=== PATIENT | female | born 1975 | race Hispanic/Latino ===

== ENCOUNTER → 2018-02-20 12:19 | Outpatient (CLI) | payer OTHER, MEDICAID, SELFPAY ==
--- NOTE | 2018-02-20 12:20 | DI.US.S_ITS ---
PROCEDURE: US PELVIC COMPLETE INDICATIONS: Pelvic pain/ Hx ovarian cysts TECHNIQUE: Real-time scanning was performed of the pelvic organs, with image documentation. Additional endovaginal scanning was necessary due to incomplete visualization of the adnexal and endometrial structures by transabdominal scanning. COMPARISON: [facility], US, PELVIC COMPLETE, 05/11/2017, 16:07. [facility], US, PELVIC COMPLETE, 03/30/2017, 17:00. FINDINGS: Transabdominal scanning: Limited scanning through the kidneys shows no hydronephrosis. No pathologic free abdominal or pelvic fluid. Endovaginal scanning: Uterus: Uterus is normal in size at 3.9 x 5.3 x 7.6 cm. The endometrium measures 9.0 mm in combined thickness. Ovaries: Right ovary measures 2.6 x 1.9 x 1.9 cm and contains a 1.7 x 1.1 x 1.5 cm simple cyst. The left ovary measures 1.8 x 1.1 x 2.2 cm. IMPRESSION: Simple cyst right ovary measures up to 1.7 cm. Source of pain is not seen. Dictated by: Jacob Campa M.D. on 02/20/2018 at 15:00 Approved by: Jacob Campa M.D. on 02/20/2018 at 15:01
== END ==
PROVIDERS: PCP Family Medicine; Visit Provider Obstetrics & Gynecology
DX: R10.2 Pelvic and perineal pain (principal); N83.291 Other ovarian cyst, right side
CPT/HCPCS: 76830; 76856

== ENCOUNTER → 2018-05-10 14:59 | Outpatient (CLI) | payer OTHER, MEDICAID, SELFPAY ==
--- NOTE | 2018-05-10 15:00 | DI.RAD.S_ITS ---
PROCEDURE: XR LUMBAR SPINE 2-3V INDICATIONS: right lumbar radiculopathy TECHNIQUE: 2 views of the lumbar spine were acquired. COMPARISON: [facility], CR, XR LUMBAR SPI COMP W FL EX 7VW, 04/12/2015, 12:59. FINDINGS: Bones: 5 [id number] vertebrae are present. There is normal bony alignment. No vertebral body compression fractures. No suspicious bony lesions. Mild early disc degeneration with small endplate osteophytes. Soft tissues: Overlying bowel gas pattern is normal. No suspicious soft tissue calcifications. IMPRESSION: Early disc degeneration, most notably L5-S1. Dictated by: Nacho Santamaria RRA Interpreted: Meliton Mayers MD on 05/10/2018 at 15:44 Approved by: Meliton Mayers M.D. on 05/11/2018 at 9:45
== END ==
PROVIDERS: PCP Family Medicine; Visit Provider Family Medicine
DX: M51.17 Intervertebral disc disorders with radiculopathy, lumbosacral region (principal)
CPT/HCPCS: 72100

== ENCOUNTER → 2018-08-30 15:22 | Outpatient (CLI) | payer OTHER, MEDICAID, SELFPAY ==
[2018-08-30 15:46] LABS: Appearance Urine UA CLEAR; Bilirubin Urine UA NEGATIVE (NEGATIVE); Color Urine UA YELLOW; Glucose Urine UA NEGATIVE (Negative); Ketones Urine UA NEGATIVE (NEGATIVE); Leukocyte Esterase Urine UA NEGATIVE (NEGATIVE); Nitrite Urine UA NEGATIVE (Negative); Occult Blood Urine UA NEGATIVE (Negative); Protein Urine UA NEGATIVE (Negative); Urobilinogen Urine UA 0.2 E.U./dL (0.2); pH Urine UA 5.5 (4.5-8.0)
[2018-08-30 15:49] LABS: Pregnancy Test Urine Negative (Negative)
== END ==
PROVIDERS: PCP Family Medicine; Visit Provider Registered Nurse
DX: R31.9 Hematuria, unspecified (principal); Z32.00 Encounter for pregnancy test, result unknown
CPT/HCPCS: 81003; 81025

== ENCOUNTER 2018-10-27 21:26 | Emergency (ER) | payer OTHER, MEDICAID, SELFPAY ==
[2018-10-27 21:39] VITALS: BP 128/96; PULSE 75; RESP 20; TEMP 37.3; O2SAT 100; BMI 20.7
--- NOTE | 2018-10-27 21:39 | ED.BACK ---
HPI - Back Pain/Injury General Chief Complaint: Back Pain/Injury Stated Complaint: back pain Time Seen by Provider: 10/27/18 21:37 Source: patient Mode of arrival: ambulatory Limitations: no limitations History of Present Illness HPI Narrative: Patient is a 43-year-old female here for evaluation of lower back pain. Patient states that it started approximately week ago. She does not remember a specific incident that caused the symptoms to come on how ever has worsened since then. She is not having any urinary symptoms. She states she occasionally has had some tingling in her lower extremities. since the onset of the symptoms she has taken Motrin 2 separate times. She states that she does not like to take this medication because it irritates her stomach. She has had lower back pain in the past but she states this pain is more sharp than normal. no fevers. No recent instrumentation. No trauma. Related Data Previous Rx's Medication Instructions Recorded gentamicin 0.1 % topical ointment See Rx Instructions TOP .COMPLEX 11/16/17 #15 gram triamcinolone acetonide 0.1 % See Rx Instructions TOP .COMPLEX 05/13/18 topical ointment #15 gram levonorgestrel 1.5 mg tablet 1.5 mg PO ONCE #1 tab 09/16/18 levonorgestrel-ethinyl estradiol 1 tab PO DAILY #28 tab 09/16/18 0.1 mg-20 mcg tablet hydrocodone-acetaminophen [[place]] 1 tab PO Q4-6H PRN #10 tab 10/27/18 meloxicam [Mobic] 7.5 mg PO BID PRN #60 tab 10/27/18 prednisone 40 mg PO DAILY 2 Days #4 tab 10/27/18 Allergies Allergy/AdvReac Type Severity Reaction Status Date / Time acetaminophen [ACETAMINOPHEN] Allergy Intermediate DIZZY/LIGHT Verified 10/27/18 21:39 HEADED diphenhydramine Allergy Unknown MAKES HER Verified 10/27/18 21:39 [From BENADRYL] EYES DRY Review of Systems Constitutional Denies fever(s) and Denies headache(s) ENT Ears, Nose, Mouth, and Throat: Denies headache(s) and Denies disequilibrium Cardiovascular Denies chest pain and Denies dyspnea Respiratory Denies dyspnea Gastrointestinal Gastrointestinal: Denies abdominal pain, Reports nausea and Denies vomiting Genitourinary Denies dysuria, Denies urinary incontinence, Denies urinary hesitancy and Denies urinary urgency Musculoskeletal Reports back pain, Denies myalgias, Denies arthralgias and Reports tingling Integumentary/Breasts Denies rash Neurologic Denies headache(s), Reports tingling, Reports paresthesias and Denies disequilibrium Hematologic/Lymphatic Denies easy bleeding and Denies easy bruising [facility] Medical History Generalized anxiety disorder (Chronic 04/25/16) History of iron deficiency anemia (Chronic 03/27/16) Severe episode of recurrent major depressive disorder, without psychotic features (Chronic 04/25/16) Chronic constipation (Chronic 07/06/17) Irritable bowel syndrome with constipation (Chronic 09/18/17) Social History marital status: occupational status: unemployed Smoking Status: Never smoker alcohol intake: current substance use type: does not use Exam Initial Vital Signs Initial Vital Signs: Vital Signs Temperature 99.2 F 10/27/18 21:39 Pulse Rate 75 10/27/18 21:39 Respiratory Rate 20 10/27/18 21:39 Blood Pressure 128/96 H 10/27/18 21:39 Pulse Oximetry 100 10/27/18 21:39 Const General: cooperative, well developed, well groomed and No acute distress Orientation: alert, awake and oriented x3 HENMT Head: normal to inspection and normocephalic Resp Effort & Inspection: normal respiratory effort Cardio Rate: regular rate GI Inspection: non-distended Palpation: soft Back/Spine/Pelvis Back: No CVA tenderness Thoracic/Lumbar Spine: No thoraco-lumbar spasm, No thoracic spinal tenderness and No lumbar spinal tenderness Skin Lesions: no lesions Rashes: no rashes Neuro General: alert, awake and oriented x3 Cognition: normal cognition Speech: speech normal Extrem General: normal to inspection and capillary refill normal Psych Appearance: grossly normal and well kempt Course Orders Ordered: Discontinued Medications Hydrocodone Bitart/Acetaminophen (Vicodin Prepack) 1 bottle MISC SEEINSTR ONE Stop: 10/27/18 21:56 Last Admin: 10/27/18 22:04 Dose: 1 bottle Hydromorphone HCl (Dilaudid) 0.5 mg IM NOW ONE Stop: 10/27/18 21:55 Last Admin: 04/28/19 22:04 Dose: 0.5 mg Prednisone (Deltasone) 40 mg PO NOW ONE Stop: 10/27/18 21:55 Last Admin: 10/27/18 22:04 Dose: 40 mg Vital Signs - 8 hr 10/27/18 21:39 10/27/18 22:40 Temperature 99.2 F Pulse Rate 75 50 L Respiratory Rate 20 16 Blood Pressure 128/96 H 126/86 Pulse Oximetry 100 98 MDM - Back Pain/Injury MDM Narrative Medical decision making narrative: Patient without red flag symptoms concerning for cauda equina, fracture, metastasis or epidural hematoma or abscess. She does not have any tenderness to palpation. She states that the pain is ?deeper ?. She was given a shot of pain medication here in the emergency department. No indication for x-rays. Will send home with symptom control. She was given return precautions and follow-up instructions. She expressed understanding and agreement plan. Discharge Plan Departure Patient Disposition: Home Clinical Impression: Lower back pain Qualifiers: Chronicity: acute Back pain laterality: bilateral Sciatica presence: without sciatica Qualified Code(s): M54.5 - Low back pain Discharge Date/Time: 10/27/18 22:40 Interventions: ED Discharge Assessment Last Done: 10/27/18 22:40 Instructions: Back Pain (Alternative Therapy), Low Back Pain, Activity May Be Better then Rest for Low Back Pain Recovery Activity Restrictions/Additional Instructions: I recommend that you stay as active as possible. Take the medications as directed. Start taking the Mobic on Sunday when you have finished the prescription of prednisone. Contact your primary care doctor for a follow-up. Return to the emergency department for any new or worsening symptoms Prescriptions: New hydrocodone-acetaminophen [[place]] 5-325 mg tablet 1 tab PO Q4-6H PRN (Reason: pain) Qty: 10 RF: 0 prednisone 20 mg tablet 40 mg PO DAILY 2 Days Qty: 4 RF: 0 meloxicam [Mobic] 7.5 mg tablet 7.5 mg PO BID PRN (Reason: back pain) Qty: 60 RF: 0 No Action triamcinolone acetonide 0.1 % ointment See Rx Instructions TOP .COMPLEX Qty: 15 RF: 1 levonorgestrel [Plan B One-Step] 1.5 mg tablet 1.5 mg PO ONCE Qty: 1 RF: 0 levonorgestrel-ethinyl estrad [[place]iane] 0.1-20 mg-mcg tablet 1 tab PO DAILY Qty: 28 RF: 3 gentamicin 0.1 % ointment See Rx Instructions TOP .COMPLEX Qty: 15 RF: 0 Referrals: Samantha Garcia DO [Primary Care Provider] -
[2018-10-27] MEDS: HYDROMORPHONE 1 MG INJ 0.5 MG IM (22:04)
[2018-10-27] MEDS: predniSONE 20 MG TABLET 40 MG PO (22:04)
[2018-10-27] MEDS: HYDROCODONE/ACET 5/325 PREPACK 1 BOTTLE MISC (22:04)
[2018-10-27 22:40] VITALS: BP 126/86; PULSE 50; RESP 16; O2SAT 98
== END 2018-10-27 22:40 | disposition home or self-care (01) ==
PROVIDERS: Emergency Provider Emergency Medicine; PCP Family Medicine
DX: M54.5 Low back pain (principal); R20.2 Paresthesia of skin
CPT/HCPCS: 96372; 99282; 99283; J1170

== ENCOUNTER → 2019-02-13 17:01 | Outpatient (CLI) | payer OTHER, MEDICAID, SELFPAY ==
[2019-02-13 18:14] LABS: Free T4, Direct Thyroxine 0.83 ng/dL (0.78-2.19)
[2019-02-13 18:27] LABS: TSH w/ Reflex to FT4 2.29 uIU/mL (0.47-4.68)
[2019-02-13 18:28] LABS: Thyroid Stimulating Hormone 2.26 uIU/mL (0.47-4.68)
== END ==
PROVIDERS: PCP Family Medicine; Visit Provider Family Medicine
DX: L65.9 Nonscarring hair loss, unspecified (principal); R53.83 Other fatigue
CPT/HCPCS: 36415; 84439; 84443

== ENCOUNTER → 2019-03-26 16:18 | Outpatient (CLI) | payer OTHER, MEDICAID, SELFPAY ==
[2019-03-26 16:56] LABS: Add Manual Diff / Slide Review NO; Basophils Absolute Auto 100 /uL (0-100); Basophils Percent Auto 1.1 % (0-2); Eosinophils Absolute Auto 200 /uL (0-450); Hematocrit 35.3 % (36-46); Hemoglobin 11.9 g/dL (12.0-16.0); Lymphocytes Absolute Auto 1700 /uL (1100-4500); Lymphocytes Percent Auto 33.5 % (25-40); Mean Corpuscular HGB Conc 33.8 % (30-36); Monocytes Absolute Auto 400 /uL (0-900); Monocytes Percent Auto 7.7 % (3-14); Neutrophils Absolute Auto 2700 /uL (1500-7000); Neutrophils Percent Auto 53.7 % (50-75); Platelet Count 262 X10^3/uL (150-400); Red Blood Cell Count 4.42 X10^6/uL (4.0-5.2); White Blood Cell Count 5.1 X10^3/uL (4.5-11.0)
[2019-03-26 17:27] LABS: HEMOLYSIS < 15 (0-50); Iron 23 ug/dL (37-170)
[2019-03-26 17:30] LABS: Alanine Aminotransferase 10 IU/L (9-52); Albumin 4.5 g/dL (3.5-5.0); Albumin Globulin Ratio 1.6 (1.0-2.8); Alkaline Phosphatase 71 U/L (38-126); Aspartate Aminotransferase 27 IU/L (14-36); BUN Creatinine Ratio 23.3 (6-22); Bilirubin Total 0.3 mg/dL (0.2-1.3); Blood Urea Nitrogen 14 mg/dL (7-17); Calcium 9.7 mg/dL (8.4-10.2); Carbon Dioxide 30 mmol/L (22-32); Chloride 102 mmol/L (98-107); Estimated Glomerular Filt Rate > 60.0 mL/min (>60); Globulin 2.9 g/dL (1.7-4.1); Glucose 92 mg/dL (70-100); HEMOLYSIS < 15 (0-50); Sodium 141 mmol/L (137-145); Total Protein 7.4 g/dL (6.3-8.2)
[2019-03-26 17:37] LABS: Percent Iron Saturation 5 % (15-50); Total Iron Binding Capacity 476 ug/dL (265-497); Transferrin 404 mg/dL (206-381)
[2019-03-26 18:04] LABS: Ferritin 4.9 ng/mL (6.27-137)
--- NOTE | 2019-04-24 09:23 | ONC.SCHED ---
Left msg to get patient scheduled for consult
== END ==
PROVIDERS: PCP Family Medicine; Visit Provider Family Medicine
DX: Z86.2 Personal history of diseases of the blood and blood-forming organs and certain disorders involving the immune mechanism (principal); L65.9 Nonscarring hair loss, unspecified
CPT/HCPCS: 36415; 80053; 82728; 83540; 83550; 85025

== ENCOUNTER → 2022-03-11 12:03 | Outpatient (CLI) | payer OTHER, SELFPAY ==
--- NOTE | 2022-03-11 12:05 | DI.RAD.S_ITS ---
PROCEDURE: XR HAND RT MIN 3V INDICATIONS: Right hand pain TECHNIQUE: 3 views of the hand acquired. COMPARISON: None. FINDINGS: Bones: No acute fractures or dislocations. Carpal bones are normally aligned. No suspicious bony lesions. Soft tissues: No suspicious soft tissue calcifications. IMPRESSION: No acute osseous abnormality. If the symptoms persist, consider cross sectional imaging such as MRI or CT for further assessment. Dictated by: Nayan Burrell M.D. on 03/11/2022 at 11:23 Approved by: Nayan Burrell M.D. on 03/11/2022 at 11:24
== END ==
PROVIDERS: PCP Family Medicine; Referring Provider Nurse Practitioner Family; Visit Provider Nurse Practitioner Family
DX: S66.911A Strain of unspecified muscle, fascia and tendon at wrist and hand level, right hand, initial encounter (principal)
CPT/HCPCS: 73130

== ENCOUNTER → 2023-11-19 12:32 | Outpatient (CLI) | payer OTHER, MEDICAID, SELFPAY ==
--- NOTE | 2023-11-19 12:33 | DI.RAD.S_ITS ---
PROCEDURE: XR TIBIA FUBULA RT 2V INDICATIONS: Right lower leg pain TECHNIQUE: 2 views of the tibia and fibula were acquired. COMPARISON: None. FINDINGS: Bones: No fractures or dislocations. No suspicious bony lesions. Soft tissues: No suspicious soft tissue calcifications or masses. IMPRESSION: No visualized acute fracture or dislocation. However, if clinical concern and/or pain persist, short interval imaging followup in 7-10 days is recommended, as occult injury cannot be definitively excluded. Dictated by: Reyna Cross M.D. on 11/19/2023 at 20:23 Approved by: Reyna Cross M.D. on 11/19/2023 at 20:24
== END ==
LOC: RAD 12:33
PROVIDERS: Family Provider Family Medicine; PCP Family Medicine; Referring Provider Nurse Practitioner Family; Visit Provider Nurse Practitioner Family
DX: M79.661 Pain in right lower leg (principal)
CPT/HCPCS: 73590

== ENCOUNTER 2024-01-23 10:30 | Outpatient (RCR) | payer OTHER, MEDICAID, SELFPAY ==
--- NOTE | 2023-11-29 15:01 | PT.OIE ---
Current Diagnoses Slow transit constipation (11/28/23) Segmental and somatic dysfunction of pelvic region (11/28/23) Unspecified dyspareunia (11/28/23) Past Medical History (Last Reviewed 11/02/23 @ 14:13 by Cecile Khan PA-C) Chronic constipation (07/06/17) Generalized anxiety disorder (04/25/16) History of iron deficiency anemia (03/27/16) Irritable bowel syndrome with constipation (09/18/17) Severe episode of recurrent major depressive disorder, without psychotic features (04/25/16) Past Surgical History (Last Reviewed 11/02/23 @ 14:13 by Cecile Khan PA-C) Previous section [place] teeth extracted Visit Care Team Role Provider Type Marylou Sinclair DO Family Provider Non-Staff Primary Care Provider Specialty: [facility] Address: [address] [place] [address], [id number] Email: Yuriy Jim MD Attending Provider Non-Staff Referring Provider Specialty: [facility] Address: [address] [place] [address], [id number] Email: Physical Therapy Initial Evaluation PT-OP-A Visit Information Start: 11/28/23 08:13 Freq: Status: Active Protocol: Document 11/28/23 08:15 [facility] (Rec: 11/28/23 11:16 [facility] [id number]) Out-Patient Physical Therapy Visit Information Visit Information Visit Type Initial Evaluation Visit Start Time 11:15 Visit Stop Time 12:00 Visit Number 1 Evaluation Information Evaluation Date 11/28/23 PT-OP-B Current Condition Start: 11/28/23 08:13 Freq: Status: Active Protocol: Document 11/28/23 08:15 [facility] (Rec: 11/28/23 08:19 [facility] [id number]) Current Condition History of Current Condition Onset Date symptoms have worsened in the past 2 years History of Current Condition 1 para1 with history of dysparunia and pelvic pain and referred today for slow transit constipation. Pt notes for years she has been experiencing chronic constipation. She has had a lot of studies done and has very slow motility. Newer in the past year she has been experiencing urinary leakage. She also reports she is not able to hold her urine like she used to. She goes more frequently and she notes she has difficulty fully emptying her bladder. When she has a bowel movement she has to strain and she feels a bulge in her vagina. She takes miralax. SHe reports she has had constipation her whole life but in the past two years she cant even feel any movement of her bowel. On average she has a bowel movement she will have a bowel movement 2 times per week. She is type 1 or type 2 stool. She had a C -section in 2000. She does note she has a tipped uterus. Rachana notes her breath also gets very bad when she is fully backed up. She had a month where she was going regulary and she noted her breath was much improved. Treatment Goals Patient/Caregiver Goals to improve ability to have a bowel movement and decrease c/ o urinary incontinence PT-OP-C Subjective Start: 11/28/23 08:13 Freq: Status: Active Protocol: Document 11/28/23 08:15 [facility] (Rec: 11/29/23 13:31 [facility] [id number]) Patient Questionnaires Pelvic Pain and Urgency/Frequency Patient Symptom Scale Pelvic Pain Score 22 PT-OP-F Manual Assessment Start: 11/28/23 08:13 Freq: Status: Active Protocol: Document 11/28/23 08:15 [facility] (Rec: 11/29/23 13:31 [facility] [id number]) Manual Assessments Soft Tissue Assessment Soft Tissue Mobility Assessment fascial restrictions and tightness in both the suprapubic fascia and over the diaphragm and colon unable to compete pelvic floor exam due to tightness and pain in the pelvic floor PT-OP-I Pelvic Floor Start: 11/28/23 08:13 Freq: Status: Active Protocol: Document 11/28/23 08:15 [facility] (Rec: 11/29/23 13:31 [facility] [id number]) Pelvic Floor Assessment Urine Pelvic Floor Surgery No Urinary Symptoms Urge Sensation,Pain Leakage Size Small Leakage Cause Cough,Exercise,Lifting,Sneeze, Urge Leaks Per Day 2 Voiding Frequency 11-14 Nocturia 3 Bowel Bowel Surgery No Bowel Symptoms Constipation Other Bowel Symptoms poor motility of the colon with bowel movements sometimes only 1 time per week, pt reports she feels a bulge into her vaginal wall when attempting to strain for a bowel movement Bowel Movement Frequency 1 time per week [place] Stool Chart Type 1-7 2 [place] Stool Chart Comments type 1-2 stool Pelvic Clock Pelvic Clock Other attempted to perform a pelvic exam however this was too painful for Rachana and the exam was stopped at the introitus due to pain. I was not able to access for prolapse or pelvic tone at today's exam Comments Pelvic Floor Comments most likely guarding of the pelvic floor musculatrue due to pain with attempt at vaginal pelvic floor exam PT-OP-K Range of Motion Start: 11/29/23 14:56 Freq: Status: Active Protocol: Document 11/28/23 08:15 [facility] (Rec: 11/29/23 14:58 [facility] [id number]) Lumbar Spine Range of Motion Lumbar Spine Active Testing Position Standing Flexion 50 Lateral Flexion Left 10 Lateral Flexion Right 10 ROM Limitations Soft Tissue Tightness Comments decreased ability to perform pelvic tilts in quadruped PT-OP-Q Treatments Start: 11/28/23 08:13 Freq: Status: Active Protocol: Document 11/28/23 08:15 [facility] (Rec: 11/28/23 13:25 [facility] [id number]) Therapeutic Exercises Supine Exercises piriformis stretch Reps/Minutes hold 1-2 min modified squat stretch Reps/Minutes hold 1-2 min Other Exercises full pelvic floor squat Reps/Minutes hold 1-2 min cat cow Reps/Minutes x 20 Self-Care/Home Management Treatment Education Patient Education Home Exercise Program,Pain Management Other Education pt was educated in the IL[facility] colon massage PT-OP-T Assessment and Plan Start: 11/28/23 08:13 Freq: Status: Active Protocol: Document 11/28/23 08:15 [facility] (Rec: 11/29/23 13:31 [facility] [id number]) Physical Therapy Assessment Rehab Potential Rehabilitation Potential Excellent Evaluation Complexity Number of Personal Factors/Comorbidities 0 Number of Body Systems Impaired 1-2 Clinical Presentation at Evaluation Stable Impairments Impairments Pain,Posture,Soft Tissue Mobility,Tone Other Impairments bowel dysfunction and slow motility Goals 4 Impairment fascial tightness as restrictions across the abdominal fascia and suprapubic fascia [employer] Goal (LTG) Rachana presents with improved mobility of the abdominal fascia and supraoubic fascia and is able to perform diaphragmatic breathing with good abdominal excursion LTG Duration 12 weeks 3 Impairment nocturia waking 3 times per night to void Short Term Goal (STG) Rachana is educated on the urge deference technique and bladder retraining STG Duration 4 weeks [employer] Goal (LTG) Rachana reports she is only waking 1-2 times per night to void LTG Duration 12 weeks 2 Impairment urinary incontinence with both activity as well as with strong urge to void. Pt reports approx 2 weeks per leak [employer] Goal (LTG) Rachana reports a overall reduction of urinary leakage and urgency LTG Duration 12 weeks 1 Impairment chronic constipation with bowel movements approx 1 time per week with type 1-2 stool. Rachana reports she has to strain for the bowel movement and can feel a bulge into her vaginal wall with this Short Term Goal (STG) Rachana is educated in abdominal massage for the colon to work on for home and is educated in toileting stragegies to help improve ease of bowel movements. She is educated on trunk mobility exercises as well to help stimulate bowel movements STG Duration 4 weeks Skilled Nursing Goal (LTG) Rachana reports a improvement with both ease of bowel movements as well as frequency of bowel movements LTG Duration 12 weeks Assessment Summary Assessment Rachana is a 48 year old female with long history of constipation and pelvic pain/ dysparunia and newer onset of urinary leakage. Rachana reports leakage approx 2 times per week. She has had many tests done on her colon and notes she has very slow motility. She reports that she is no longer able to delay the need to void and she feels as if she is not fully emptying her bladder. She reports having constipation her whole life but in the past couple of years she has stopped feeling any movement of her bowels and feels she has lost sensation of when she needs to have a bowel movement. She reports having a type 1-2 stool. She reports nocturia of 3 times per night . She has a past history of 1 delivery. Rachana reports she has avoided intercourse due to pain and complaints of dry tissue and she explains this pain has prevented her from becomming intimate with a partner and is very much affecting her life. With exam today there is fascial restrictions and guarding throughout the abdominal fascia, diaphragm and over the colon. Fascial restrictions are found in the suprapubic fascia and surrounding the bladder. Rachana has decreased ROM of the lumbar spine and has difficulty with pelvic mobility. Pelvic floor exam was attempted today however Rachana was in pain with palpation at the introitus and so the exam was stopped. She may benefit from a bioidentical estrogen cream for the vaginal tissue. Rachana does describe a bulge into the vaginal wall when attempting to have a bowel movement and she would benefit from evaluating the pelvic organ position however we will wait until she has had a change to begin pelvic floor stretching. She was shown a self massage for her colon today as well as given stretches to begin working on pelvic floor relaxation. Rachana is a good candidate for Pelvic PT Physical Therapy Plan Frequency and Duration Frequency of Treatment 2x/Week Duration of treatment (weeks) 12 Plan of Care Start Date 11/28/23 Plan of Care End Date 02/20/24 Therapeutic Interventions Therapeutic Interventions Home Exercise Program,Manual Therapy,Neuromuscular Re- education,Patient/Caregiver Education,Self-Care/Home Management,Soft Tissue Mobilization,Therapeutic Exercises Modalities Biofeedback Next Visit Focus/Plan Next Note Type Treatment Note Next Visit Plan visceral massage over the colon, pelvic floor relaxation stretches, bowel training, diaphragmatic breathing exercises and stretches to open up the anterior pelvis
--- NOTE | 2023-11-29 15:02 | PT.OPPOC ---
Physical, Occupational & Speech Therapy At [facility] Current Diagnoses Slow transit constipation (11/28/23) Segmental and somatic dysfunction of pelvic region (11/28/23) Unspecified dyspareunia (11/28/23) Visit Care Team Role Provider Type Marylou Sinclair DO Family Provider Non-Staff Primary Care Provider Specialty: Family Practice Address: [address] [place] [address], [place], [address] Email: Yuriy Jim MD Attending Provider Non-Staff Referring Provider Specialty: Family Practice Address: [address] [place] [address], [place], [address] Email: Plan Of Care PT-OP-T Assessment and Plan Start: 11/28/23 08:13 Freq: Status: Active Protocol: Document 11/28/23 08:15 [facility] (Rec: 11/29/23 13:31 [facility] [id number]) Physical Therapy Assessment Rehab Potential Rehabilitation Potential Excellent Evaluation Complexity Number of Personal Factors/Comorbidities 0 Number of Body Systems Impaired 1-2 Clinical Presentation at Evaluation Stable Impairments Impairments Pain,Posture,Soft Tissue Mobility,Tone Other Impairments bowel dysfunction and slow motility Goals 4 Impairment fascial tightness as restrictions across the abdominal fascia and suprapubic fascia Care Home Goal (LTG) Rachana presents with improved mobility of the abdominal fascia and suprapubic fascia and is able to perform diaphragmatic breathing with good abdominal excursion LTG Duration 12 weeks 3 Impairment nocturia waking 3 times per night to void Short Term Goal (STG) Rachana is educated on the urge deference technique and bladder retraining STG Duration 4 weeks Care Home Goal (LTG) Rachana reports she is only waking 1-2 times per night to void LTG Duration 12 weeks 2 Impairment urinary incontinence with both activity as well as with strong urge to void. Pt reports approx 2 weeks per leak Care Home Goal (LTG) Rachana reports a overall reduction of urinary leakage and urgency LTG Duration 12 weeks 1 Impairment chronic constipation with bowel movements approx 1 time per week with type 1-2 stool. Rachana reports she has to strain for the bowel movement and can feel a bulge into her vaginal wall with this Short Term Goal (STG) Rachana is educated in abdominal massage for the colon to work on for home and is educated in toileting strategies to help improve ease of bowel movements. She is educated on trunk mobility exercises as well to help stimulate bowel movements STG Duration 4 weeks Care Home Goal (LTG) Rachana reports a improvement with both ease of bowel movements as well as frequency of bowel movements LTG Duration 12 weeks Assessment Summary Assessment Rachana is a 48 year old female with long history of constipation and pelvic pain/ dysparunia and newer onset of urinary leakage. Rachana reports leakage approx 2 times per week. She has had many tests done on her colon and notes she has very slow motility. She reports that she is no longer able to delay the need to void and she feels as if she is not fully emptying her bladder. She reports having constipation her whole life but in the past couple of years she has stopped feeling any movement of her bowels and feels she has lost sensation of when she needs to have a bowel movement. She reports having a type 1-2 stool. She reports nocturia of 3 times per night . She has a past history of 1 delivery. Rachana reports she has avoided intercourse due to pain and complaints of dry tissue and she explains this pain has prevented her from becoming intimate with a partner and is very much affecting her life. With exam today there is fascial restrictions and guarding throughout the abdominal fascia, diaphragm and over the colon. Fascial restrictions are found in the suprapubic fascia and surrounding the bladder. Rachana has decreased ROM of the lumbar spine and has difficulty with pelvic mobility. Pelvic floor exam was attempted today however Rachana was in pain with palpation at the introitus and so the exam was stopped. She may benefit from a bioidentical estrogen cream for the vaginal tissue. Rachana does describe a bulge into the vaginal wall when attempting to have a bowel movement and she would benefit from evaluating the pelvic organ position however we will wait until she has had a change to begin pelvic floor stretching. She was shown a self massage for her colon today as well as given stretches to begin working on pelvic floor relaxation. Rachana is a good candidate for Pelvic PT Physical Therapy Plan Frequency and Duration Frequency of Treatment 2x/Week Duration of treatment (weeks) 12 Plan of Care Start Date 11/28/23 Plan of Care End Date 02/20/24 Therapeutic Interventions Therapeutic Interventions Home Exercise Program,Manual Therapy,Neuromuscular Re- education,Patient/Caregiver Education,Self-Care/Home Management,Soft Tissue Mobilization,Therapeutic Exercises Modalities Biofeedback Next Visit Focus/Plan Next Note Type Treatment Note Next Visit Plan visceral massage over the colon, pelvic floor relaxation stretches, bowel training, diaphragmatic breathing exercises and stretches to open up the anterior pelvis Plan of Care Dates Plan of Care Start Date 11/28/23 Plan of Care End Date 02/20/24 Electronically Signed by: Adelina Main, PT 11/29/23 0557 If you are in agreement with this Plan of Care, please return a signed and dated copy. I have reviewed this Plan of Care and certify that the skilled therapy services above are required to meet the patient?s needs. Physician Signature Date Printed Name and Credentials Clinical Instructor Signature Printed Name and Credentials
--- NOTE | 2023-12-06 14:03 | PT.OTN ---
Current Diagnoses Slow transit constipation (12/06/23) Segmental and somatic dysfunction of pelvic region (12/06/23) Unspecified dyspareunia (12/06/23) Physical Therapy Treatment Note PT-OP-A Visit Information Start: 11/28/23 08:13 Freq: Status: Active Protocol: Document 12/06/23 10:33 [facility] (Rec: 12/06/23 11:21 [facility] [id number]) Out-Patient Physical Therapy Visit Information Visit Information Visit Type Treatment Note Visit Start Time 10:33 Visit Stop Time 11:15 Visit Number 2 PT-OP-B Current Condition Start: 11/28/23 08:13 Freq: Status: Active Protocol: Document 11/28/23 08:15 [facility] (Rec: 11/28/23 08:19 [facility] [id number]) Current Condition History of Current Condition Onset Date symptoms have worsened in the past 2 years History of Current Condition 1 para1 with history of dysparunia and pelvic pain and referred today for slow transit constipation. Pt notes for years she has been experiencing chronic constipation. She has had a lot of studies done and has very slow motility. Newer in the past year she has been experiencing urinary leakage. She also reports she is not able to hold her urine like she used to. She goes more frequently and she notes she has difficulty fully emptying her bladder. When she has a bowel movement she has to strain and she feels a bulge in her vagina. She takes miralax. SHe reports she has had constipation her whole life but in the past two years she cant even feel any movement of her bowel. On average she has a bowel movement she will have a bowel movement 2 times per week. She is type 1 or type 2 stool. She had a C -section in 2000. She does note she has a tipped uterus. Rachana notes her breath also gets very bad when she is fully backed up. She had a month where she was going regulary and she noted her breath was much improved. Treatment Goals Patient/Caregiver Goals to improve ability to have a bowel movement and decrease c/ o urinary incontinence PT-OP-C Subjective Start: 11/28/23 08:13 Freq: Status: Active Protocol: Document 12/06/23 10:33 [facility] (Rec: 12/06/23 11:21 [facility] [id number]) OP-PT Subjective Patient Comments Patient Comments tried the abdominal massage and then tried the castor oil at night night She really feels that she is not getting much stool out. PT-OP-F Manual Assessment Start: 11/28/23 08:13 Freq: Status: Active Protocol: Document 11/28/23 08:15 [facility] (Rec: 11/29/23 13:31 [facility] [id number]) Manual Assessments Soft Tissue Assessment Soft Tissue Mobility Assessment fascial restrictions and tightness in both the suprapubic fascia and over the diaphragm and colon unable to compete pelvic floor exam due to tightness and pain in the pelvic floor PT-OP-I Pelvic Floor Start: 11/28/23 08:13 Freq: Status: Active Protocol: Document 11/28/23 08:15 [facility] (Rec: 11/29/23 13:31 [facility] [id number]) Pelvic Floor Assessment Urine Pelvic Floor Surgery No Urinary Symptoms Urge Sensation,Pain Leakage Size Small Leakage Cause Cough,Exercise,Lifting,Sneeze, Urge Leaks Per Day 2 Voiding Frequency 11-14 Nocturia 3 Bowel Bowel Surgery No Bowel Symptoms Constipation Other Bowel Symptoms poor motility of the colon with bowel movements sometimes only 1 time per week, pt reports she feels a bulge into her vaginal wall when attempting to strain for a bowel movement Bowel Movement Frequency 1 time per week L[place] Stool Chart Type 1-7 2 Loup Stool Chart Comments type 1-2 stool Pelvic Clock Pelvic Clock Other attempted to perform a pelvic exam however this was too painful for Rachana and the exam was stopped at the introitus due to pain. I was not able to access for prolapse or pelvic tone at today's exam Comments Pelvic Floor Comments most likely guarding of the pelvic floor musculatrue due to pain with attempt at vaginal pelvic floor exam PT-OP-K Range of Motion Start: 11/29/23 14:56 Freq: Status: Active Protocol: Document 11/28/23 08:15 [facility] (Rec: 11/29/23 14:58 [facility] [id number]) Lumbar Spine Range of Motion Lumbar Spine Active Testing Position Standing Flexion 50 Lateral Flexion Left 10 Lateral Flexion Right 10 ROM Limitations Soft Tissue Tightness Comments decreased ability to perform pelvic tilts in quadruped PT-OP-Q Treatments Start: 11/28/23 08:13 Freq: Status: Active Protocol: Document 12/06/23 13:58 [facility] (Rec: 12/06/23 14:03 [facility] [id number]) Therapeutic Exercises Supine Exercises windshield wipers Side bilateral Reps/Minutes x 20 reps Other Exercises quadruped thoracic rotation Reps/Minutes x 10 reps each side quadruped sidebends Reps/Minutes x 10 reps Manual Therapy Treatment Soft Tissue Mobilization fascial release in the region of the iliocecal valve Mobilization Type Myofascial Release Intensity/Depth Moderate Body Position Supine ILU massage over the colon Comments tight across the transverse colon and left descending colon PT-OP-T Assessment and Plan Start: 11/28/23 08:13 Freq: Status: Active Protocol: Document 12/06/23 13:58 [facility] (Rec: 12/06/23 14:03 [facility] [id number]) Physical Therapy Assessment Assessment Summary Assessment I worked on fascial release over the abdominal wall for Rachana today and she has a great about of tightness on the transverse and descending colon. I also started adding in thoracic rotation and sidebending as well as trunk rotation to help stimulate movement through the bowels. She is noticing she went a little more frequently this week however it was a very small amount Physical Therapy Plan Frequency and Duration Frequency of Treatment 2x/Week Duration of treatment (weeks) 12 Plan of Care Start Date 11/28/23 Plan of Care End Date 02/20/24 Therapeutic Interventions Therapeutic Interventions Home Exercise Program,Manual Therapy,Neuromuscular Re- education,Patient/Caregiver Education,Self-Care/Home Management,Soft Tissue Mobilization,Therapeutic Exercises Modalities Biofeedback Next Visit Focus/Plan Next Note Type Treatment Note Next Visit Plan continue with trunk rotation exercises and fascial work to help improve mobility of the colon and improve bowel movements.
--- NOTE | 2024-01-02 12:36 | PT.OTN ---
Current Diagnoses Slow transit constipation (01/02/24) Segmental and somatic dysfunction of pelvic region (01/02/24) Unspecified dyspareunia (01/02/24) Physical Therapy Treatment Note PT-OP-A Visit Information Start: 11/28/23 08:13 Freq: Status: Active Protocol: Document 01/02/24 10:33 [facility] (Rec: 01/02/24 11:14 [facility] [id number]) Out-Patient Physical Therapy Visit Information Visit Information Visit Type Treatment Note Visit Start Time 10:30 Visit Stop Time 11:15 Visit Number 3 PT-OP-B Current Condition Start: 11/28/23 08:13 Freq: Status: Active Protocol: Document 11/28/23 08:15 [facility] (Rec: 11/28/23 08:19 [facility] [id number]) Current Condition History of Current Condition Onset Date symptoms have worsened in the past 2 years History of Current Condition 1 para1 with history of dysparunia and pelvic pain and referred today for slow transit constipation. Pt notes for years she has been experiencing chronic constipation. She has had a lot of studies done and has very slow motility. Newer in the past year she has been experiencing urinary leakage. She also reports she is not able to hold her urine like she used to. She goes more frequently and she notes she has difficulty fully emptying her bladder. When she has a bowel movement she has to strain and she feels a bulge in her vagina. She takes miralax. SHe reports she has had constipation her whole life but in the past two years she cant even feel any movement of her bowel. On average she has a bowel movement she will have a bowel movement 2 times per week. She is type 1 or type 2 stool. She had a C -section in 2000. She does note she has a tipped uterus. Rachana notes her breath also gets very bad when she is fully backed up. She had a month where she was going regulary and she noted her breath was much improved. Treatment Goals Patient/Caregiver Goals to improve ability to have a bowel movement and decrease c/ o urinary incontinence PT-OP-C Subjective Start: 11/28/23 08:13 Freq: Status: Active Protocol: Document 01/02/24 10:33 [facility] (Rec: 01/02/24 11:14 [facility] [id number]) OP-PT Subjective Patient Comments Patient Comments pt notes things are a bit better and she has been going to the bathroom more but she is having to use suppitories 2 times per week. She went to [facility] for 11 days and she felt her stomache was working better Patient Reported Progress Improving PT-OP-F Manual Assessment Start: 11/28/23 08:13 Freq: Status: Active Protocol: Document 11/28/23 08:15 [facility] (Rec: 11/29/23 13:31 [facility] [id number]) Manual Assessments Soft Tissue Assessment Soft Tissue Mobility Assessment fascial restrictions and tightness in both the suprapubic fascia and over the diaphragm and colon unable to compete pelvic floor exam due to tightness and pain in the pelvic floor PT-OP-I Pelvic Floor Start: 11/28/23 08:13 Freq: Status: Active Protocol: Document 11/28/23 08:15 [facility] (Rec: 11/29/23 13:31 [facility] [id number]) Pelvic Floor Assessment Urine Pelvic Floor Surgery No Urinary Symptoms Urge Sensation,Pain Leakage Size Small Leakage Cause Cough,Exercise,Lifting,Sneeze, Urge Leaks Per Day 2 Voiding Frequency 11-14 Nocturia 3 Bowel Bowel Surgery No Bowel Symptoms Constipation Other Bowel Symptoms poor motility of the colon with bowel movements sometimes only 1 time per week, pt reports she feels a bulge into her vaginal wall when attempting to strain for a bowel movement Bowel Movement Frequency 1 time per week [place] Stool Chart Type 1-7 2 [place] Stool Chart Comments type 1-2 stool Pelvic Clock Pelvic Clock Other attempted to perform a pelvic exam however this was too painful for Rachana and the exam was stopped at the introitus due to pain. I was not able to access for prolapse or pelvic tone at today's exam Comments Pelvic Floor Comments most likely guarding of the pelvic floor musculatrue due to pain with attempt at vaginal pelvic floor exam PT-OP-K Range of Motion Start: 11/29/23 14:56 Freq: Status: Active Protocol: Document 11/28/23 08:15 [facility] (Rec: 11/29/23 14:58 [facility] [id number]) Lumbar Spine Range of Motion Lumbar Spine Active Testing Position Standing Flexion 50 Lateral Flexion Left 10 Lateral Flexion Right 10 ROM Limitations Soft Tissue Tightness Comments decreased ability to perform pelvic tilts in quadruped PT-OP-Q Treatments Start: 11/28/23 08:13 Freq: Status: Active Protocol: Document 01/02/24 10:33 [facility] (Rec: 01/02/24 11:14 [facility] [id number]) Therapeutic Exercises Supine Exercises windshield wipers Side bilateral Reps/Minutes x 20 reps piriformis stretch Reps/Minutes hold 1-2 min modified squat stretch Reps/Minutes hold 1-2 min Other Exercises cat cow Reps/Minutes x 20 Self-Care/Home Management Treatment Activities Self-Care/Home Management Activities Rachana was given a sixe xs dilator today to begin working on relaxing the introitus and vaginal opening PT-OP-T Assessment and Plan Start: 11/28/23 08:13 Freq: Status: Active Protocol: Document 01/02/24 10:33 [facility] (Rec: 01/02/24 11:14 [facility] [id number]) Physical Therapy Assessment Assessment Summary Assessment We are continuing to work on fascial release and mobility of the colon. She feels tight at the area of the iloiocecal valve and there is tightness at the suprapubic fascia as well. Exercises were reviewed today and I encouraged these for HEP Physical Therapy Plan Frequency and Duration Frequency of Treatment 2x/Week Duration of treatment (weeks) 12 Plan of Care Start Date 11/28/23 Plan of Care End Date 02/20/24 Next Visit Focus/Plan Next Note Type Treatment Note Next Visit Plan work on diaphragmatic breathing and vagus nerve humming for the throat. Assess how Rachana did with the xs dilator
--- NOTE | 2024-01-09 12:39 | PT.OTN ---
Current Diagnoses Slow transit constipation (01/09/24) Segmental and somatic dysfunction of pelvic region (01/09/24) Unspecified dyspareunia (01/09/24) Physical Therapy Treatment Note PT-OP-A Visit Information Start: 11/28/23 08:13 Freq: Status: Active Protocol: Document 01/09/24 10:36 [facility] (Rec: 01/09/24 11:13 [facility] [id number]) Out-Patient Physical Therapy Visit Information Visit Information Visit Type Treatment Note Visit Start Time 10:35 Visit Stop Time 11:15 Visit Number 4 PT-OP-B Current Condition Start: 11/28/23 08:13 Freq: Status: Active Protocol: Document 11/28/23 08:15 [facility] (Rec: 11/28/23 08:19 [facility] [id number]) Current Condition History of Current Condition Onset Date symptoms have worsened in the past 2 years History of Current Condition 1 para1 with history of dysparunia and pelvic pain and referred today for slow transit constipation. Pt notes for years she has been experiencing chronic constipation. She has had a lot of studies done and has very slow motility. Newer in the past year she has been experiencing urinary leakage. She also reports she is not able to hold her urine like she used to. She goes more frequently and she notes she has difficulty fully emptying her bladder. When she has a bowel movement she has to strain and she feels a bulge in her vagina. She takes miralax. SHe reports she has had constipation her whole life but in the past two years she cant even feel any movement of her bowel. On average she has a bowel movement she will have a bowel movement 2 times per week. She is type 1 or type 2 stool. She had a C -section in 2000. She does note she has a tipped uterus. Rachana notes her breath also gets very bad when she is fully backed up. She had a month where she was going regulary and she noted her breath was much improved. Treatment Goals Patient/Caregiver Goals to improve ability to have a bowel movement and decrease c/ o urinary incontinence PT-OP-C Subjective Start: 11/28/23 08:13 Freq: Status: Active Protocol: Document 01/09/24 10:36 [facility] (Rec: 01/09/24 11:13 [facility] [id number]) OP-PT Subjective Patient Comments Patient Comments pt notes she is doing better with motility, she has been doing the castor oil. She is having a bowel movement every other day. She is noting less leakage when she isn't as backed up Patient Reported Progress Improving PT-OP-F Manual Assessment Start: 11/28/23 08:13 Freq: Status: Active Protocol: Document 11/28/23 08:15 [facility] (Rec: 11/29/23 13:31 [facility] [id number]) Manual Assessments Soft Tissue Assessment Soft Tissue Mobility Assessment fascial restrictions and tightness in both the suprapubic fascia and over the diaphragm and colon unable to compete pelvic floor exam due to tightness and pain in the pelvic floor PT-OP-I Pelvic Floor Start: 11/28/23 08:13 Freq: Status: Active Protocol: Document 11/28/23 08:15 [facility] (Rec: 11/29/23 13:31 [facility] [id number]) Pelvic Floor Assessment Urine Pelvic Floor Surgery No Urinary Symptoms Urge Sensation,Pain Leakage Size Small Leakage Cause Cough,Exercise,Lifting,Sneeze, Urge Leaks Per Day 2 Voiding Frequency 11-14 Nocturia 3 Bowel Bowel Surgery No Bowel Symptoms Constipation Other Bowel Symptoms poor motility of the colon with bowel movements sometimes only 1 time per week, pt reports she feels a bulge into her vaginal wall when attempting to strain for a bowel movement Bowel Movement Frequency 1 time per week [place] Stool Chart Type 1-7 2 [place] Stool Chart Comments type 1-2 stool Pelvic Clock Pelvic Clock Other attempted to perform a pelvic exam however this was too painful for Rachana and the exam was stopped at the introitus due to pain. I was not able to access for prolapse or pelvic tone at today's exam Comments Pelvic Floor Comments most likely guarding of the pelvic floor musculatrue due to pain with attempt at vaginal pelvic floor exam PT-OP-K Range of Motion Start: 11/29/23 14:56 Freq: Status: Active Protocol: Document 11/28/23 08:15 [facility] (Rec: 11/29/23 14:58 [facility] [id number]) Lumbar Spine Range of Motion Lumbar Spine Active Testing Position Standing Flexion 50 Lateral Flexion Left 10 Lateral Flexion Right 10 ROM Limitations Soft Tissue Tightness Comments decreased ability to perform pelvic tilts in quadruped PT-OP-Q Treatments Start: 11/28/23 08:13 Freq: Status: Active Protocol: Document 01/09/24 10:36 [facility] (Rec: 01/09/24 11:13 [facility] [id number]) Therapeutic Exercises Supine Exercises supine hip roll outs with theraband Supine Exercise Name gave for HEP Equipment Used level 2 theraband Reps/Minutes x 30 reps pelvic floor long holds Supine Exercise Name gave for HEP Reps/Minutes x 10 reps Comments average of 11.5 maxof32.7 average rest 3.9 pelvic floor resting tone Comments 3.5 uv at rest Self-Care/Home Management Treatment Education Patient Education Home Exercise Program,Pain Management Other Education pt was given a size small dilator for home use today to move up from the XS with instructions on how to use it. HEP was updated with handouts given including pelvic floor long holds and hip roll outs with theraband PT-OP-T Assessment and Plan Start: 11/28/23 08:13 Freq: Status: Active Protocol: Document 01/09/24 10:36 [facility] (Rec: 01/09/24 11:13 [facility] [id number]) Physical Therapy Assessment Goals 4 Impairment fascial tightness as restrictions across the abdominal fascia and suprapubic fascia Correction Goal (LTG) Rachana presents with improved mobility of the abdominal fascia and supraoubic fascia and is able to perform diaphragmatic breathing with good abdominal excursion LTG Duration 12 weeks 3 Impairment nocturia waking 3 times per night to void Short Term Goal (STG) Rachana is educated on the urge deference technique and bladder retraining STG Duration 4 weeks Correction Goal (LTG) Rachana reports she is only waking 1-2 times per night to void LTG Duration 12 weeks 2 Impairment urinary incontinence with both activity as well as with strong urge to void. Pt reports approx 2 weeks per leak Mortgage Consultant Goal (LTG) Rachana reports a overall reduction of urinary leakage and urgency LTG Duration 12 weeks 1 Impairment chronic constipation with bowel movements approx 1 time per week with type 1-2 stool. Rachana reports she has to strain for the bowel movement and can feel a bulge into her vaginal wall with this Short Term Goal (STG) Rachana is educated in abdominal massage for the colon to work on for home and is educated in toileting stragegies to help improve ease of bowel movements. She is educated on trunk mobility exercises as well to help stimulate bowel movements STG Duration 4 weeks Correction Goal (LTG) Rachana reports a improvement with both ease of bowel movements as well as frequency of bowel movements LTG Duration 12 weeks Assessment Summary Assessment Pelvic floor work was done today using the recal sensor vaginally due to the vaginal sensor being too large. Rachana did well with rectal sensor. Her resting tone started at 3.5 uv and she was able to relax to baseline after working on contract relax with her pelvic floor. She was given a size small dilator today to work up to for home and we will try EMG biofeedback with a vaginal sensor once she is ready. She is reporting improvement with her bowelmovements which has helped decrease the pressure on her bladder. Physical Therapy Plan Frequency and Duration Frequency of Treatment 2x/Week Duration of treatment (weeks) 12 Plan of Care Start Date 11/28/23 Plan of Care End Date 02/20/24 Therapeutic Interventions Therapeutic Interventions Home Exercise Program,Manual Therapy,Neuromuscular Re- education,Patient/Caregiver Education,Self-Care/Home Management,Soft Tissue Mobilization,Therapeutic Exercises Modalities Biofeedback Next Visit Focus/Plan Next Note Type Treatment Note Next Visit Plan assess how Rachana did with the size small dilator for home and continue with EMG biofeedback for pelvic floor endurance training as well as relaxed awareness of the pelvic floor.
--- NOTE | 2024-01-23 12:56 | PT.OTN ---
Current Diagnoses Slow transit constipation (01/23/24) Segmental and somatic dysfunction of pelvic region (01/23/24) Unspecified dyspareunia (01/23/24) Physical Therapy Treatment Note PT-OP-A Visit Information Start: 11/28/23 08:13 Freq: Status: Active Protocol: Document 01/23/24 10:34 [facility] (Rec: 01/23/24 11:16 [facility] [id number]) Out-Patient Physical Therapy Visit Information Visit Information Visit Type Treatment Note Visit Start Time 10:30 Visit Stop Time 11:15 Visit Number 6 PT-OP-B Current Condition Start: 11/28/23 08:13 Freq: Status: Active Protocol: Document 11/28/23 08:15 [facility] (Rec: 11/28/23 08:19 [facility] [id number]) Current Condition History of Current Condition Onset Date symptoms have worsened in the past 2 years History of Current Condition 1 para1 with history of dysparunia and pelvic pain and referred today for slow transit constipation. Pt notes for years she has been experiencing chronic constipation. She has had a lot of studies done and has very slow motility. Newer in the past year she has been experiencing urinary leakage. She also reports she is not able to hold her urine like she used to. She goes more frequently and she notes she has difficulty fully emptying her bladder. When she has a bowel movement she has to strain and she feels a bulge in her vagina. She takes miralax. SHe reports she has had constipation her whole life but in the past two years she cant even feel any movement of her bowel. On average she has a bowel movement she will have a bowel movement 2 times per week. She is type 1 or type 2 stool. She had a C -section in 2000. She does note she has a tipped uterus. Rachana notes her breath also gets very bad when she is fully backed up. She had a month where she was going regulary and she noted her breath was much improved. Treatment Goals Patient/Caregiver Goals to improve ability to have a bowel movement and decrease c/ o urinary incontinence PT-OP-C Subjective Start: 11/28/23 08:13 Freq: Status: Active Protocol: Document 01/23/24 10:34 [facility] (Rec: 01/23/24 11:16 [facility] [id number]) OP-PT Subjective Patient Comments Patient Comments pt notes she hasn't tried the dilator since last week, pt notes that she feels it has been difficult to go to the bathroom again PT-OP-F Manual Assessment Start: 11/28/23 08:13 Freq: Status: Active Protocol: Document 11/28/23 08:15 [facility] (Rec: 11/29/23 13:31 [facility] [id number]) Manual Assessments Soft Tissue Assessment Soft Tissue Mobility Assessment fascial restrictions and tightness in both the suprapubic fascia and over the diaphragm and colon unable to compete pelvic floor exam due to tightness and pain in the pelvic floor PT-OP-I Pelvic Floor Start: 11/28/23 08:13 Freq: Status: Active Protocol: Document 11/28/23 08:15 [facility] (Rec: 11/29/23 13:31 [facility] [id number]) Pelvic Floor Assessment Urine Pelvic Floor Surgery No Urinary Symptoms Urge Sensation,Pain Leakage Size Small Leakage Cause Cough,Exercise,Lifting,Sneeze, Urge Leaks Per Day 2 Voiding Frequency 11-14 Nocturia 3 Bowel Bowel Surgery No Bowel Symptoms Constipation Other Bowel Symptoms poor motility of the colon with bowel movements sometimes only 1 time per week, pt reports she feels a bulge into her vaginal wall when attempting to strain for a bowel movement Bowel Movement Frequency 1 time per week [place] Stool Chart Type 1-7 2 [place] Stool Chart Comments type 1-2 stool Pelvic Clock Pelvic Clock Other attempted to perform a pelvic exam however this was too painful for Rachana and the exam was stopped at the introitus due to pain. I was not able to access for prolapse or pelvic tone at today's exam Comments Pelvic Floor Comments most likely guarding of the pelvic floor musculatrue due to pain with attempt at vaginal pelvic floor exam PT-OP-K Range of Motion Start: 11/29/23 14:56 Freq: Status: Active Protocol: Document 11/28/23 08:15 [facility] (Rec: 11/29/23 14:58 [facility] [id number]) Lumbar Spine Range of Motion Lumbar Spine Active Testing Position Standing Flexion 50 Lateral Flexion Left 10 Lateral Flexion Right 10 ROM Limitations Soft Tissue Tightness Comments decreased ability to perform pelvic tilts in quadruped PT-OP-Q Treatments Start: 11/28/23 08:13 Freq: Status: Active Protocol: Document 01/23/24 12:50 [facility] (Rec: 01/23/24 12:55 [facility] [id number]) Manual Therapy Treatment Soft Tissue Mobilization fascial release in the region of the diaphraghm Mobilization Type Myofascial Release Intensity/Depth Moderate Body Position Hooklying Comments I had Rachana work on diaphragmatic breathing with fascial release fascial release in the region of the iliocecal valve Mobilization Type Myofascial Release Intensity/Depth Moderate Body Position Supine ILU massage over the colon Comments tight across the transverse colon and left descending colon Self-Care/Home Management Treatment Education Patient Education Home Exercise Program,Pain Management Other Education education on continued use of the dilator and working towards downtraining the pelvic floor muscles for relaxation PT-OP-T Assessment and Plan Start: 11/28/23 08:13 Freq: Status: Active Protocol: Document 01/23/24 12:50 [facility] (Rec: 01/23/24 12:55 [facility] [id number]) Physical Therapy Assessment Goals 4 Impairment fascial tightness as restrictions across the abdominal fascia and suprapubic fascia Fdc Goal (LTG) Rachana presents with improved mobility of the abdominal fascia and supraoubic fascia and is able to perform diaphragmatic breathing with good abdominal excursion some progress LTG Duration 12 weeks 3 Impairment nocturia waking 3 times per night to void Short Term Goal (STG) Rachana is educated on the urge deference technique and bladder retraining goal met STG Duration 4 weeks Rubberizing Mechanic Goal (LTG) Rachana reports she is only waking 1-2 times per night to void intermittent symptoms and this is better if she has had a bowel movement the day before LTG Duration 12 weeks 2 Impairment urinary incontinence with both activity as well as with strong urge to void. Pt reports approx 2 weeks per leak Rubberizing Mechanic Goal (LTG) Rachana reports a overall reduction of urinary leakage and urgency with more regualr bowel movements Rachana reports decreased leakage LTG Duration 12 weeks 1 Impairment chronic constipation with bowel movements approx 1 time per week with type 1-2 stool. Rachana reports she has to strain for the bowel movement and can feel a bulge into her vaginal wall with this Short Term Goal (STG) Rachana is educated in abdominal massage for the colon to work on for home and is educated in toileting stragegies to help improve ease of bowel movements. She is educated on trunk mobility exercises as well to help stimulate bowel movements goal met STG Duration 4 weeks Rubberizing Mechanic Goal (LTG) Rachana reports a improvement with both ease of bowel movements as well as frequency of bowel movements Rachana has had success with improvement with bowel movements, today she notes a set back after eating pizza which has caused more constipation LTG Duration 12 weeks Assessment Summary Assessment Rachana has been seen x 6 visits in PT for bowel dysfunction. She has been education on trunk mobility exercises to stimulate bowel movements, manual self massage for the colon, and breathing exercises to help down train the nervous system. She has had good progress with improved bowel movements. Today she had a set back as she had eaten pizza and this caused a bout of constipation. This was her last visit and she is independnet with her HEP at this time and will continue working on her own with self massage and her exercises. She will be discharged from PT at this time Physical Therapy Plan Discharge Physical Therapy Discharge Reasons No Longer Attending PT
== END 2024-02-04 13:42 | disposition home or self-care (01) ==
LOC: PHYS 10:30
PROVIDERS: Family Provider Family Medicine; PCP Family Medicine; Referring Provider Family Medicine; Visit Provider Family Medicine
DX: K59.01 Slow transit constipation (principal); M99.05 Segmental and somatic dysfunction of pelvic region; N94.10 Unspecified dyspareunia
CPT/HCPCS: 97110; 97140; 97161; 97535

== ENCOUNTER → 2024-03-18 16:02 | Outpatient (CLI) | payer OTHER, MEDICAID, SELFPAY ==
[2024-03-18 18:07] LABS: Urine Chlamydia NOT DETECTED; Urine N gonorrhoeae NOT DETECTED
== END ==
PROVIDERS: Family Provider Family Medicine; PCP Family Medicine; Visit Provider Physician Assistant Surgical
DX: R30.0 Dysuria (principal); N94.89 Other specified conditions associated with female genital organs and menstrual cycle; R10.2 Pelvic and perineal pain
CPT/HCPCS: 87086; 87210; 87491; 87591

== ENCOUNTER → 2024-03-18 16:09 | Outpatient (CLI) | payer OTHER, MEDICAID, SELFPAY ==
[2024-03-18 18:35] LABS: Hepatitis B Surface Antigen NEGATIVE s/c (NEGATIVE)
[2024-03-18 18:54] LABS: HIV 1 & 2 Ab/Ag 4th Gen Combo NEGATIVE (NEGATIVE); Hep C Virus Ab w/Reflex Quant NEGATIVE s/c (NEGATIVE)
[2024-03-19 08:12] LABS: RPR Screen Non Reactive (Non Reactive)
== END ==
PROVIDERS: Family Provider Family Medicine; PCP Family Medicine; Referring Provider Physician Assistant Surgical; Visit Provider Physician Assistant Surgical
DX: Z20.2 Contact with and (suspected) exposure to infections with a predominantly sexual mode of transmission (principal)
CPT/HCPCS: 36415; 86592; 86695; 86696; 86803; 87086; 87210; 87340; 87389; 87491; 87591

== ENCOUNTER → 2024-07-23 14:31 | Outpatient (CLI) | payer BC, SELFPAY ==
[2024-07-26 20:38] LABS: Deamidated Gliadin Ab IgA 4 units (0-19); Deamidated Gliadin Ab IgG 3 units (0-19); Immunoglobulin A,Qn 156 mg/dL (87-352); t-Transglutaminase IgA <2 U/mL (0-3)
== END ==
PROVIDERS: Family Provider Family Medicine; PCP Naturopath; Referring Provider Naturopath; Visit Provider Naturopath
DX: K59.00 Constipation, unspecified (principal); D50.9 Iron deficiency anemia, unspecified; H04.129 Dry eye syndrome of unspecified lacrimal gland; Z13.0 Encounter for screening for diseases of the blood and blood-forming organs and certain disorders involving the immune mechanism
CPT/HCPCS: 36415; 82784; 83516; 86038

== ENCOUNTER → 2024-10-09 07:09 | Outpatient (CLI) | payer BC, OTHER, SELFPAY ==
[2024-10-09 07:34] LABS: Add Manual Diff / Slide Review NO; Basophils Absolute Auto 100 /uL (0-100); Basophils Percent Auto 1.7 % (0-2); Eosinophils Absolute Auto 200 /uL (0-450); Eosinophils Percent Auto 5.9 % (2-4); Hematocrit 26.6 % (36-46); Hemoglobin 8.7 g/dL (12.0-16.0); Lymphocytes Absolute Auto 1400 /uL (1100-4500); Lymphocytes Percent Auto 32.6 % (25-40); Mean Corpuscular HGB Conc 32.7 % (30-36); Mean Corpuscular Hemoglobin 25.9 PG (26-34); Mean Corpuscular Volume 79.2 fL (80-100); Monocytes Absolute Auto 400 /uL (0-900); Monocytes Percent Auto 10.1 % (3-14); Neutrophils Absolute Auto 2100 /uL (1500-7000); Neutrophils Percent Auto 49.7 % (50-75); Platelet Count 297 X10^3/uL (150-400); Red Blood Cell Count 3.36 X10^6/uL (4.0-5.2); Red Cell Distribution Width 14.6 % (11.6-14.8); White Blood Cell Count 4.2 X10^3/uL (4.5-11.0)
[2024-10-09 08:01] LABS: Alanine Aminotransferase 23 IU/L (<35); Albumin Globulin Ratio 1.6 (1.0-2.8); Alkaline Phosphatase 77 U/L (38-126); Aspartate Aminotransferase 31 IU/L (14-36); BUN Creatinine Ratio 27.8 (6-22); Bilirubin Total 0.2 mg/dL (0.2-1.3); Blood Urea Nitrogen 15 mg/dL (7-17); Calcium 8.8 mg/dL (8.4-10.2); Carbon Dioxide 26 mmol/L (22-32); Chloride 106 mmol/L (98-107); Cholesterol 198 mg/dL (140-199); Estimated Glomerular Filt Rate > 60 mL/min (>60); Globulin 2.5 g/dL (1.7-4.1); Glucose 97 mg/dL (70-100); HDL Cholesterol 68 mg/dL (40-60); HEMOLYSIS < 15 (0-50); Iron 20 ug/dL (37-170); LDL Cholesterol Calculated 118 mg/dL (<100); Potassium 3.8 mmol/L (3.4-5.1); Sodium 139 mmol/L (137-145); Total Protein 6.5 g/dL (6.3-8.2); Triglycerides 58 mg/dL (35-150)
[2024-10-09 08:11] LABS: Percent Iron Saturation 4 % (15-50); Total Iron Binding Capacity 470 ug/dL (265-497); Transferrin 396 mg/dL (206-381)
[2024-10-09 08:17] LABS: Free T3, Triiodothyronine Free 2.96 pg/mL (2.77-5.27); Free T4, Direct Thyroxine 0.85 ng/dL (0.78-2.19)
[2024-10-09 08:31] LABS: Thyroid Stimulating Hormone 4.01 uIU/mL (0.47-4.68)
[2024-10-09 08:32] LABS: Ferritin 4 ng/mL (6-137)
[2024-10-10 07:10] LABS: Thyroid Peroxidase Antibodies 14 IU/mL (0-34)
== END ==
PROVIDERS: Family Provider Family Medicine; PCP Naturopath; Referring Provider Naturopath; Visit Provider Naturopath
DX: Z00.00 Encounter for general adult medical examination without abnormal findings (principal); E61.1 Iron deficiency; E03.9 Hypothyroidism, unspecified
CPT/HCPCS: 36415; 80053; 80061; 82728; 83540; 83550; 84439; 84443; 84481; 85025; 86376

== ENCOUNTER 2024-10-09 12:21 | Emergency (ER) | payer BC, SELFPAY ==
[2024-10-09] VITALS (10 sets, daily range): BP systolic 106–162; BP diastolic 61–91; PULSE 57–77; RESP 18; TEMP 37; O2SAT 97–100; BMI 20.4
[2024-10-09 13:48] LABS: Add Manual Diff / Slide Review NO; Basophils Absolute Auto 0 /uL (0-100); Basophils Percent Auto 0.2 % (0-2); Eosinophils Absolute Auto 200 /uL (0-450); Eosinophils Percent Auto 3.4 % (2-4); Hematocrit 26.2 % (36-46); Hemoglobin 8.6 g/dL (12.0-16.0); Lymphocytes Absolute Auto 1600 /uL (1100-4500); Lymphocytes Percent Auto 29.8 % (25-40); Mean Corpuscular HGB Conc 32.6 % (30-36); Mean Corpuscular Hemoglobin 25.9 PG (26-34); Mean Corpuscular Volume 79.4 fL (80-100); Monocytes Absolute Auto 500 /uL (0-900); Monocytes Percent Auto 8.5 % (3-14); Neutrophils Absolute Auto 3100 /uL (1500-7000); Neutrophils Percent Auto 58.1 % (50-75); Platelet Count 297 X10^3/uL (150-400); Red Cell Distribution Width 14.5 % (11.6-14.8); White Blood Cell Count 5.4 X10^3/uL (4.5-11.0)
[2024-10-09 14:03] LABS: Alanine Aminotransferase 24 IU/L (<35); Albumin 4.2 g/dL (3.5-5.0); Albumin Globulin Ratio 1.5 (1.0-2.8); Alkaline Phosphatase 75 U/L (38-126); Aspartate Aminotransferase 36 IU/L (14-36); BUN Creatinine Ratio 23.9 (6-22); Bilirubin Total 0.3 mg/dL (0.2-1.3); Blood Urea Nitrogen 11 mg/dL (7-17); Calcium 8.8 mg/dL (8.4-10.2); Carbon Dioxide 25 mmol/L (22-32); Chloride 106 mmol/L (98-107); Estimated Glomerular Filt Rate > 60 mL/min (>60); Globulin 2.8 g/dL (1.7-4.1); Glucose 91 mg/dL (70-100); HEMOLYSIS < 15 (0-50); Lipase 78 U/L (23-300); Potassium 3.7 mmol/L (3.4-5.1); Sodium 139 mmol/L (137-145)
[2024-10-09] MEDS: SODIUM CHLORIDE 0.9% 1,000 ML 500 ML IV (18:11)
--- NOTE | 2024-10-09 18:16 | PC.NURSE ---
Patient refused CT scan, states that her deductible is very high and she doesnt think that she needs one. Patient states that her provider sent her over for iron infusion and she wants to know if she will be getting one. This RN educated patient that provider wants a CT to rule out any other causes for symptoms also educated patient that its up to the provider to order infusion and decide is she needs one. Patient refusing IV fluids at this time. Dr. To aware that patient refused CT scan
== END 2024-10-09 18:40 | disposition left against medical advice (07) ==
PROVIDERS: Emergency Provider Emergency Medicine; Family Provider Family Medicine; PCP Naturopath
DX: R79.89 Other specified abnormal findings of blood chemistry (principal); K59.00 Constipation, unspecified; Z53.21 Procedure and treatment not carried out due to patient leaving prior to being seen by health care provider
CPT/HCPCS: 36415; 80053; 80061; 82728; 83540; 83550; 83690; 84439; 84443; 84481; 85025; 86376; 99284